=== PATIENT | female | born 2000 | race Caucasian/White ===

== ENCOUNTER 2018-03-26 12:00 | Emergency (ER) | payer OTHER ==
[2018-03-26] MEDS ORDERED: GADOBUTROL 10 ML VIAL IVP ONE (14:19)
[2018-03-27 06:01] VITALS: BP 111/80
--- NOTE | 2018-03-28 16:47 | EDPHY ---
H & P Stated Complaint: NAUSEA AND DIZZINESS FOR 1 MONTH Time Seen by Provider: 03/26/18 12:10 - Personal History Current Tetanus/Diphtheria Vaccine: Yes Current Tetanus Diphtheria and Acellular Pertussis (TDAP): Yes - Medical/Surgical History Hx Asthma: No Hx Chronic Respiratory Disease: No Hx Diabetes: No Hx Cardiac Disease: No Hx Renal Disease: No Hx Cirrhosis: No Hx Alcoholism: No Hx HIV/AIDS: No Hx Splenectomy or Spleen Trauma: No Other PMH: MIGRAINES - Social History Smoking Status: Never smoked Constitutional: Initial Vital Signs Temperature (C) 37.0 C 03/26/18 12:05 Heart Rate 67 03/26/18 12:05 Respiratory Rate 18 03/26/18 12:05 Blood Pressure 108/77 03/26/18 12:05 O2 Sat (%) 97 03/26/18 12:05 O2 Delivery Mode Room Air Medical Decision Making ED Course/Re-evaluation: This note was created during prolonged hospital-wide EHR downtime and may be incomplete or contain inaccurracies to due circumstance limitations. CHIEF COMPLAINT: Nausea, dizziness, shakiness HISTORY OF PRESENT ILLNESS: The patient is a 17 y/o female with a history of migraines arriving with her mother complaining of waxing and waning nausea, dizziness, and shakiness for the last month. She says, "if I'm lying down relaxing in a cold room I'm usually fine. If I'm standing up and moving around or outside in the heat I can't do any of it." She says when standing, "I'm falling over, my vision is all over the place, I'm spinning." She describes difficulty walking due to the dizziness. She cannot identify an obvious precipitating event, illness, or trauma. She does not have unilateral weakness, paresthesias, or speech difficulties. She feels fine at the moment apart from a constant baseline headache. She doesn't feel recent symptoms are like her prior migraine symptoms. She notes she started Midrin for migraines one week ago after seeing a physician at the headache clinic at [facility], but these symptoms were present previous to beginning this medication. She also notes she wakes up in the morning with rapid heart rate and pain in the back of her head going down her spine, then develops uncontrollable shakiness. Prior brain MRI 4 years ago. REVIEW OF SYSTEMS: A 10 point review of systems was performed and is negative with the exception of the elements mentioned in the history of present illness. PHYSICAL EXAM: HR, BP, O2 Sat, RR. Temp noted General Appearance: Alert, well hydrated, appropriate, and non-toxic appearing. Head: Atraumatic without scalp tenderness or obvious injury Eyes: Pupils equal, round, reactive to light and accommodation, EOMI, no trauma , no injection. Nose: Atraumatic, no rhinorrhea, clear. Throat: Mucus membranes moist. Neck: Supple, non-tender, no lymphadenopathy. Respiratory: No retractions, no distress, no wheezes, and no accessory muscle use. Lungs are clear to auscultation bilaterally. Cardiovascular: Regular rate and rhythm, no murmurs, rubs, or gallops. Good capillary refill all extremities. Gastrointestinal: Abdomen is soft, non-tender, non-distended, no masses, no rebound, no guarding, no peritoneal signs. Musculoskeletal: Normal active ROM of all extremities, atraumatic. Neurological: Alert, appropriate, and interactive. The patient has non-focal cranial nerves, motor, sensory, and cerebellar exam. Skin: No rashes, good turgor, no nodules on palpation. PAST MEDICAL HISTORY: Migraines/abdominal migraines - Midrin; anxiety; depression; kidney infection 3 months ago PAST SURGICAL HISTORY: Knee surgery SOCIAL HISTORY: Mother at bedside. Line Driver: Dr. Adair DIAGNOSTICS/PROCEDURES/CRITICAL CARE TIME: MRI with and without contrast: pending DIFFERENTIAL DIAGNOSIS: The differential diagnosis for the patient's dizziness included but was not limited to peripheral and central causes of vertigo, orthostatic causes including dehydration, cardiogenic and neurogenic causes, and blood loss. MEDICAL DECISION MAKING: This is a 17 y/o female with a history of migraines and anxiety who presents with a 1-month history of multiple complaints including dizziness, vision changes, nausea, and difficulty balancing. Neuro exam is completely normal here. Plan for brain MRI. 1500: Patient care signed out to Dr. Gray pending MRI report. If negative, patient will be discharged home with standard dizziness care instructions and return precautions. This note was created during prolonged hospital-wide EHR downtime and may be incomplete or contain inaccuracies to due circumstance limitations. - Data Points Point of Care Test Results: Chemistry 03/26/18 03/26/18 13:30 13:26 POC Sodium 140 mEq/L mEq/L (135-145) POC Potassium 3.8 mEq/L mEq/L (3.3-5.0) POC Chloride 103 mEq/L mEq/L (97-110) POC BUN 11 mg/dL mg/dL (7-23) POC Creatinine 0.8 mg/dL mg/dL (0.6-1.0) POC Glucose 74 mg/dL mg/dL (70-100) POC Troponin I 0.00 ng/mL ng/mL (0.00-0.08) ISTAT H&H 03/26/18 13:30 POC Hgb 13.6 gm/dL gm/dL (12.6-16.3) POC Hct 40 % % (38-47) Departure - Departure Disposition: Home, Routine, Self-Care Referrals: Maykel Childress MD [Primary Care Provider] - As per Instructions Report Scribed for: Cooper Rogers Report Scribed by: Mago Hardy
== END 2018-03-26 16:25 | disposition home or self-care (01) ==
DX: R42 Dizziness and giddiness (principal)
CPT/HCPCS: 82435-PO; 82565-PO; 82947-PO; 84132-PO; 84295-PO; 84484-PO; 84520-PO; 85014-PO; A9585